=== PATIENT | female | born 1995 | race African-American/Black ===

== ENCOUNTER 2022-06-23 10:11 | Emergency (ER) | payer SELFPAY ==
[2022-06-23] MEDS ORDERED: DIAZEPAM 5 MG TABLET ONE (10:40)
[2022-06-23] MEDS ORDERED: HYDROCODONE/APAP 5/325 MG TAB ONE (10:41)
[2022-06-23] MEDS ORDERED: KETOROLAC 30 MG/ML INJ ONE (10:41)
--- NOTE | 2022-06-23 11:50 | RAD REPORT ---
EXAM DESCRIPTION: RAD - Shoulder Right 2 View - 06/23/2022 11:03 am CLINICAL HISTORY: Right shoulder pain FINDINGS: No fracture or dislocation is seen. No bone or joint abnormality noted
--- NOTE | 2022-06-23 11:58 | ER ---
Nurse's Notes [facility] Name: Corrie Anthony Age: 26 yrs Sex: Female : 1995 Arrival Date: 06/23/2022 Time: 10:13 Bed 10 Private MD: Diagnosis: Muscle spasm of back Presentation: 06/23 10:28 Chief complaint: Patient states: "I woke up this morning with my shoulder in pain" vg1 Limitied ROM to Right shoulder. Pt denies injury or recent falls but did state 'lifts pts on a daily basis'. Coronavirus screen: Vaccine status: Patient reports receiving the 2nd dose of the covid vaccine. Client denies travel out of the [place] in the last 14 days. Ebola Screen: Patient negative for fever greater than or equal to 101.5 degrees Fahrenheit, and additional compatible Ebola Virus Disease symptoms Patient denies exposure to infectious person. Initial Sepsis Screen: Does the patient meet any 2 criteria? No. Patient's initial sepsis screen is negative. Does the patient have a suspected source of infection? No. Patient's initial sepsis screen is negative. Risk Assessment: Do you want to hurt yourself or someone else? Patient reports no desire to harm self or others. Onset of symptoms was June 23, 2022. 10:28 Method Of Arrival: Ambulatory vg1 10:28 Acuity: KELLY 4 vg1 Triage Assessment: 10:30 General: Appears in no apparent distress. uncomfortable, Behavior is calm, cooperative. vg1 Pain: Complains of pain in right shoulder Pain radiates to Right side of neck Pain currently is 10 out of 10 on a pain scale. Quality of pain is described as sharp, shooting, Pain began this morning. Neuro: Level of Consciousness is awake, alert, obeys commands, Oriented to person, place, time, situation. Musculoskeletal: Range of motion: limited in right shoulder. 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 - Social history:: Smoking status: Patient denies any tobacco usage or history of. Screenin:00 Abuse screen: Denies threats or abuse. Denies injuries from another. Nutritional tp1 screening: No deficits noted. Tuberculosis screening: No symptoms or risk factors identified. Fall Risk None identified. Assessment: 11:00 General: Appears in no apparent distress. uncomfortable, Behavior is calm, cooperative. tp1 Pain: Complains of pain in right shoulder and back Pain currently is 10 out of 10 on a pain scale. Quality of pain is described as stiff Is continuous, Aggravated by repositioning. Neuro: Level of Consciousness is awake, alert, obeys commands, Oriented to person, place, time, situation. Cardiovascular: Capillary refill < 3 seconds in bilateral fingers Patient's skin is warm and dry. Cardiovascular:. Respiratory: Airway is patent Respiratory effort is even, unlabored. GI: No signs and/or symptoms were reported involving the gastrointestinal system. : No signs and/or symptoms were reported regarding the genitourinary system. EENT: No signs and/or symptoms were reported regarding the EENT system. Derm: Skin is pink, warm \\T\\ dry. Denies tingling, denies trauma. Musculoskeletal: Circulation, motion, and sensation intact. reports pain in shoulder with movement. 12:00 Reassessment: Patient appears in no apparent distress at this time. No changes from tp1 previously documented assessment. Patient and/or family updated on plan of care and expected duration. Pain level reassessed. Patient is alert, oriented x 3, equal unlabored respirations, skin warm/dry/pink. states pain has decreased. rates pain 7/10. Vital Signs: 10:28 BP 165 / 94; Pulse 90; Resp 17; Temp 98.9(O); Pulse Ox 100% on R/A; Weight 81.65 kg; vg1 Height 5 ft. 1 in. (154.94 cm); Pain 10/10; 11:59 BP 126 / 86; Pulse 79; Resp 16; Pulse Ox 100% on R/A; tp1 10:28 Body Mass Index 34.01 (81.65 kg, 154.94 cm) vg1 ED Course: 10:13 Patient arrived in ED. rg4 10:13 Curt Love PA is PHCP. aurora 10:13 Michelle Pantoja MD is Attending Physician. aurora 10:30 Triage completed. vg1 10:30 Arm band placed on. vg1 10:36 Lola Sinclair, RN is Primary Nurse. tp1 11:00 Patient has correct armband on for positive identification. Bed in low position. Call tp1 light in reach. Adult w/ patient. 11:04 Shoulder Right (2 View) XRAY In Process Unspecified. EDMS 12:00 No provider procedures requiring assistance completed. Patient did not have IV access tp1 during this emergency room visit. Administered Medications: 11:00 Drug: Valium (diazepam) 5 mg Route: PO; tp1 12:01 Follow up: Response: Pain is decreased tp1 11:00 Drug: HYDROcodone-acetaminophen 5 mg-325 mg 1 tabs Route: PO; tp1 12:01 Follow up: Response: Pain is decreased tp1 11:03 Drug: Ketorolac 30 mg Route: IM; Site: left deltoid; tp1 12:01 Follow up: Response: Pain is decreased tp1 Medication: 11:00 VIS not applicable for this client. tp1 Outcome: 11:57 Discharge ordered by . [facility] 12:16 Discharged to home ambulatory. tp1 12:16 Condition: good 12:16 Discharge instructions given to patient, Instructed on discharge instructions, follow up and referral plans. medication usage, Demonstrated understanding of instructions, follow-up care, medications, Prescriptions given X 2. 12:16 Patient left the ED. tp1 Signatures: Dispatcher [employer] EDMS Curt Love PA PA jmm Garcia, Rubi rg4 Kelsy Greene RN RN vg1 Lola Sinclair, RN RN tp1 Corrections: (The following items were deleted from the chart) 10:32 10:30 PMHx: None; vg1 vg1
--- NOTE | 2022-06-23 11:58 | EDPHYS ---
Physician Documentation [facility] Name: Corrie Anthony Age: 26 yrs Sex: Female : 1995 Arrival Date: 06/23/2022 Time: 10:13 Bed 10 Private MD: ED Physician Michelle Pantoja HPI: 06/23 10:35 This 26 yrs old Black Female presents to ER via Ambulatory with complaints of Shoulder jmm Injury. 10:35 The patient or guardian complains of pain. Onset: The symptoms/episode began/occurred jmm today. Modifying factors: the symptoms are alleviated by nothing. The symptoms are aggravated by movement. Is a 26-year-old female with history of sickle cell anemia that presents emerged part with complaints of right upper back pain beginning today. Denies known injury but states she does have a strenuous job. Denies chest pain or shortness of breath.. 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 - Social history:: Smoking status: Patient denies any tobacco usage or history of. ROS: 10:35 Constitutional: Negative for fever, chills, and weight loss, Cardiovascular: Negative jmm for chest pain, palpitations, and edema, Respiratory: Negative for shortness of breath, cough, wheezing, and pleuritic chest pain. 10:35 Back: Positive for pain with movement. 10:35 All other systems are negative. Exam: 10:35 Constitutional: This is a well developed, well nourished patient who is awake, alert, jmm and in no acute distress. Head/Face: atraumatic. Eyes: EOMI, no conjunctival erythema appreciated ENT: Moist Mucus Membranes Neck: Trachea midline, Supple Chest/axilla: Normal chest wall appearance and motion. Cardiovascular: Regular rate and rhythm. No edema appreciated Respiratory: Normal respirations, no respiratory distress appreciated Abdomen/GI: Non distended 10:35 Skin: General appearance color normal MS/ Extremity: Moves all extremities, no obvious deformities appreciated, no edema noted to the lower extremities Neuro: Awake and alert Psych: Behavior is normal, Mood is normal, Patient is cooperative and pleasant 10:35 Back: Right upper back muscle spasm noted, tender to palpation reproduces pain. Vital Signs: 10:28 BP 165 / 94; Pulse 90; Resp 17; Temp 98.9(O); Pulse Ox 100% on R/A; Weight 81.65 kg; vg1 Height 5 ft. 1 in. (154.94 cm); Pain 10/; 11:59 BP 126 / 86; Pulse 79; Resp 16; Pulse Ox 100% on R/A; tp1 10:28 Body Mass Index 34.01 (81.65 kg, 154.94 cm) vg1 MDM: 10:35 Patient medically screened. [facility] 11:57 Data reviewed: vital signs, nurses notes. Counseling: I had a detailed discussion with aurora the patient and/or guardian regarding: the historical points, exam findings, and any diagnostic results supporting the discharge/admit diagnosis, the need for outpatient follow up, to return to the emergency department if symptoms worsen or persist or if there are any questions or concerns that arise at home. 06/23 10:36 Order name: Shoulder Right (2 View) XRAY; Complete Time: 11:51 [facility] Administered Medications: 11:00 Drug: Valium (diazepam) 5 mg Route: PO; tp1 12:01 Follow up: Response: Pain is decreased tp1 11:00 Drug: HYDROcodone-acetaminophen 5 mg-325 mg 1 tabs Route: PO; tp1 12:01 Follow up: Response: Pain is decreased tp1 11:03 Drug: Ketorolac 30 mg Route: IM; Site: left deltoid; tp1 12:01 Follow up: Response: Pain is decreased tp1 Disposition Summary: 06/23/22 11:57 Discharge Ordered Location: Home [facility] Condition: Stable [facility] Diagnosis - Muscle spasm of back [facility] Followup: della - With: Private Physician - When: 2 - 3 days - Reason: Recheck today's complaints, Continuance of care, Re-evaluation by your physician Discharge Instructions: - Discharge Summary Sheet della - Muscle Cramps and Spasms [facility] Forms: - Medication Reconciliation Form jmm - Work release form [facility] - Thank You Letter aurora - Antibiotic Education jmm - Prescription Opioid Use jm Prescriptions: - Zanaflex 4 mg Oral Tablet - take 1 tablet by ORAL route every 8 hours As needed; 20 tablet; Refills: 0, [facility] Product Selection Permitted - Diclofenac Sodium 75 mg Oral Tablet Sustained Release - take 1 tablet by ORAL route 2 times per day; 30 tablet; Refills: 0, Product [facility] Selection Permitted Addendum: 06/26/2022 03:24 STAFF ATTESTATION STATEMENT: I was immediately available onsite in the emergency s d2 department for consultation in the care of this patient. I did not see or examine this patient. Michelle Pantoja MD. Signatures: Dispatcher [employer] EDMS Curt Love PA PA jmm Garcia, Victoria, RN RN vg1 Lola Sinclair RN RN tp1 Michelle Pantoja MD MD sd2 Corrections: (The following items were deleted from the chart) 06/23 10:32 10:30 PMHx: None; vg1 vg1
[2022-06-23 12:22] VITALS: TEMP 98.9; O2SAT 100
[2022-06-23 12:23] VITALS: BP 126/86
== END 2022-06-23 12:16 | disposition home or self-care (01) ==
LOC: ER 10:11
DX: M62.830 Muscle spasm of back (principal); D57.1 Sickle-cell disease without crisis
CPT/HCPCS: 96372; 99283